=== PATIENT | female | born 1955 | race Caucasian/White ===

== ENCOUNTER 2020-03-22 07:44 | Day surgery (SDC) | payer BC ==
[~2020-03-22 07:44] MED LIST: Lactated Ringers 1,000 ML IV SCH; Lidocaine 1%/Sod Bicarbonate in NS 8.4% 1 ML Syringe IDERM PRN; Sodium Chloride 0.9% 10 ML Syringe FLUSH PRN
--- NOTE | 2020-03-22 08:04 | PCM.PREANE ---
Preanesthetic Assessment - Procedure Proposed Procedure: Colonoscopy - Anesthesia/Transfusion/Family Hx Anesthesia History: Prior Anesthesia Without Reaction Family History of Anesthesia Reaction: No - Review of Systems General: No Symptoms Pulmonary: No Symptoms Cardiovascular: No Symptoms Gastrointestinal: No Symptoms Neurological: No Symptoms Other: Reports: None - Physical Assessment NPO Status Date: 03/22/20 (NPO > 8 hours with exception of bowel prep fluids) ASA Class: 1 Mental Status: Alert & Oriented x3 Airway Class: Mallampati = 2 Dentition: Reports: Normal Dentition ROM/Head Extension: Full Lungs: Clear to Auscultation, Normal Respiratory Effort Cardiovascular: Regular Rate, Regular Rhythm - Allergies Allergies/Adverse Reactions: Allergies Allergy/AdvReac Type Severity Reaction Status Date / Time No Known Allergies Allergy Verified 03/21/20 13:20 - Acknowledgements Anesthesia Type Planned: MAC Pt an Appropriate Candidate for the Planned Anesthesia: Yes Alternatives and Risks of Anesthesia Discussed w Pt/Guardian: Yes Pt/Guardian Understands and Agrees with Anesthesia Plan: Yes PreAnesthesia Questionnaire HEENT History: Reports: Impaired Vision, Sinusitis Cardiovascular History: Reports: None Respiratory History: Reports: None Gastrointestinal History: Reports: None Genitourinary History: Reports: Urinary Incontinence CHANNEL CEMENTER History: Reports: None Musculoskeletal History: Reports: None Neurological History: Reports: None Psychiatric History: Reports: None Endocrine/Metabolic History: Reports: Osteopenia Hematologic History: Reports: None Immunologic History: Reports: None Oncologic (Cancer) History: Reports: None Dermatologic History: Reports: Other (See Below) Other Dermatologic History: dyshidrotic dermatitis - Infectious Disease History Infectious Disease History: Reports: None - Past Surgical History Head Surgeries/Procedures: Reports: None HEENT Surgical History: Reports: LASIK Cardiovascular Surgical History: Reports: None Respiratory Surgical History: Reports: None GI Surgical History: Reports: Colonoscopy Female Surgical History: Reports: None Male Surgical History: Reports: None Endocrine Surgical History: Reports: None Neurological Surgical History: Reports: None Musculoskeletal Surgical History: Reports: Other (See Below) Other Musculoskeletal Surgeries/Procedures:: knee procedure, left ankle surgery Oncologic Surgical History: Reports: None Dermatological Surgical History: Reports: None - SUBSTANCE USE Smoking Status *Q: Never Smoker Days Per Week of Alcohol Use: 7 Number of Drinks Per Day: 1 Total Drinks Per Week: 7 Recreational Drug Use History: No - HOME MEDS Home Medications: Home Meds Aspirin 81 mg PO DAILY 03/21/20 [History] Calcium Carb/Vitamin D3/Vit K1 [Calcium + D Soft Chewable Tab] 1 tab PO DAILY 03/21/20 [History] Cholecalciferol (Vitamin D3) [Vitamin D3] 2,000 unit PO DAILY 03/21/20 [History] Multivitamin 1 tab PO DAILY 03/21/20 [History] - CURRENT (IN HOUSE) MEDS Current Meds: Current Medications Lactated Ringer's (Ringers, Lactated) 1,000 mls @ 125 mls/hr IV ASDIRECTED JEAN Stop: 03/22/20 23:00 Lidocaine/Sodium Bicarbonate (Buffered Lidocaine 1% In Ns 8.4%) 0.25 ml IDERM ONETIME PRN PRN Reason: Prior to IV Start Stop: 03/22/20 18:00 Sodium Chloride (Saline Flush) 10 ml FLUSH ASDIRECTED PRN PRN Reason: Keep Vein Open Stop: 03/22/20 18:00
[2020-03-22] MEDS ORDERED: Propofol 200 MG/20 ML SDV ONE ×3 (08:13→09:09)
--- NOTE | 2020-03-22 09:39 | PCM.PRNOTE ---
- Free Text/Narrative Note: Date: 03/22/2020 Procedure: diagnostic colonoscopy Indication: positive Cologuard test Endoscopist: Jorge Watkins MD Findings: Ileocecal valve visualized. Prep was excellent. Diverticular disease. Small pedunculated polyp in sigmoid, with very small hyperplastic-appearing polyp in rectum. Internal and external hemorrhoidal disease. Detailed Report: The patient was taken to the endoscopy suite and placed in left lateral decubitus position. Time out was performed and monitored anesthesia care was initiated. A moderate sized external hemorrhoid was present. Digital rectal exam was unremarkable. The lubricated colonoscope was then inserted and advanced all the way to the cecum. The colon was tortuous. The ileocecal valve and appendiceal orifice were visualized. The prep was noted to be excellent. On slow withdrawal of the scope, mucosal surfaces were carefully inspected. There was diverticular disease, most notably in the sigmoid colon. A single pedunculated polyp, less than 1 cm, was identified in the sigmoid and removed with forceps. Remnant tissue was fulgurated. A very small hyperplastic appearing polyp in the rectum was removed and base fulgurated. Internal hemorrhoids were noted on retroflexion within the rectum. Air was suctioned and the scope withdrawn. The patient tolerated the procedure well.
--- NOTE | 2020-03-22 09:40 | PCM.POSTAN ---
POST ANESTHESIA ASSESSMENT - MENTAL STATUS Mental Status: Alert, Oriented - VITAL SIGNS Vital Signs: Last Vital Signs Temp 37.4 C 03/22/20 07:50 Pulse 62 03/22/20 07:50 Resp 16 03/22/20 07:50 BP 139/87 03/22/20 07:50 Pulse Ox 95 03/22/20 07:50 - RESPIRATORY Respiratory Status: Respiratory Rate WNL, Airway Patent, O2 Saturation Stable - CARDIOVASCULAR CV Status: Pulse Rate WNL, Blood Pressure Stable - GASTROINTESTINAL GI Status: No Symptoms - PAIN Pain Score: 0 - POST OP HYDRATION Hydration Status: Adequate & Stable - OBSERVATIONS Free Text/Narrative:: Handoff to nursing in recovery. VSS, SV, FARIAS, FAC, CTAB. No concerns at this time.
--- NOTE | 2020-03-23 09:17 | PCM48HPAN ---
Post Anesthesia Note - EVALUATION WITHIN 48HRS OF ANESTHETIC Vital Signs in Normal Range: Yes Patient Participated in Evaluation: Yes Respiratory Function Stable: Yes Airway Patent: Yes Cardiovascular Function Stable: Yes Hydration Status Stable: Yes Pain Control Satisfactory: Yes Nausea and Vomiting Control Satisfactory: Yes Mental Status Recovered: Yes Vital Signs: Last Vital Signs Temp 36.2 C 03/22/20 10:04 Pulse 65 03/22/20 10:04 Resp 17 03/22/20 10:04 BP 134/72 03/22/20 10:04 Pulse Ox 99 03/22/20 10:04 - COMMENTS/OBSERVATIONS Free Text/Narrative:: Patient meets criteria for discharge. SV, VSS, FARIAS, FAC, CTAB. No concerns at this time.
--- NOTE | 2020-03-25 13:57 | PCM.SN.2 ---
- Free Text/Narrative Note: Called to discuss biopsy results from colonoscopy with patient; benign polypoid tissue without adenomatous changes in face of positive Cologuard test. Although I feel the colon prep was very good and we got a good look at everything, I worry with the positive Cologuard results about a potential missed lesion. I think she will need a repeat scope sooner than 10 years from now, preferably sooner but I think it would be reasonable to repeat a scope within 5 years and I discussed this recommendation with the patient today on the phone.
== END 2020-03-22 10:18 | disposition home or self-care (01) ==
LOC: JD.SDS 07:44
PROVIDERS: ATTEND Surgery
DX: K62.1 Rectal polyp (principal); K63.5 Polyp of colon; K57.30 Diverticulosis of large intestine without perforation or abscess without bleeding; K64.8 Other hemorrhoids; K64.4 Residual hemorrhoidal skin tags; M85.80 Other specified disorders of bone density and structure, unspecified site; Z79.82 Long term (current) use of aspirin; Z79.899 Other long term (current) drug therapy
CPT/HCPCS: 00811; J2001; J2704; J7120